=== PATIENT | male | born 1935 | race Caucasian/White ===

== ENCOUNTER 2016-05-11 12:20 | Emergency (ER) | payer MEDICARE, OTHER ==
[~2016-05-11] VITALS: Ht 180.3 cm; Wt 76.7 kg
[~2016-05-11 12:20] MED LIST: ASPI325T4 PO
[2016-05-11 13:59] VITALS: BP 123/84
--- NOTE | 2016-05-11 14:27 | PHYS DOC ---
Past Medical History Past Medical History: Anemia, CVA, Hypertension, Hypothyroid, Other Additional Past Medical Histor: LOW PLATELETS Past Surgical History: Other Additional Past Surgical Histo: Esophageal dilation. Alcohol Use: Occasionally Drug Use: None Adult General Chief Complaint Chief Complaint: NOSEBLEED [facility] HPI 81-year-old male presents secondary to a nosebleed. He states his nose started bleeding at home and he was able to pack it with a cotton ball and alleviate the bleeding. Since arrival to our emergency department he has had no further bleeding. He states he is using a humidifier at night as well as Vaseline on the inside of his nose. He states this is the second time this week he's presented to the emergency department with a nosebleed. He states the first time it stopped after using a spray of Afrin. Review of Systems Review of Systems Constitutional: Denies fever or chills [] Eyes: Denies change in visual acuity, redness, or eye pain [] HENT: Per history of present illness [] Respiratory: Denies cough or shortness of breath [] Cardiovascular: No additional information not addressed in HPI [] GI: Denies abdominal pain, nausea, vomiting, bloody stools or diarrhea [] : Denies dysuria or hematuria [] Musculoskeletal: Denies back pain or joint pain [] Integument: Denies rash or skin lesions [] Neurologic: Denies headache, focal weakness or sensory changes [] Endocrine: Denies polyuria or polydipsia [] Allergies Allergies Allergies Coded Allergies Type Severity Reaction Last Updated Verified Penicillins Allergy Intermediate Itching 03/27/13 Yes Physical Exam Physical Exam Constitutional: Well developed, well nourished, no acute distress, non-toxic appearance. [] HENT: No active bleeding from either naris there is a cotton ball packed in the anterior portion of the left naris again, no bleeding.. [] Eyes: PERRLA, EOMI, conjunctiva normal, no discharge. [] Neck: Normal range of motion, no tenderness, supple, no stridor. [] Cardiovascular:Heart rate regular rhythm, no murmur [] Lungs & Thorax: Bilateral breath sounds clear to auscultation [] Abdomen: Bowel sounds normal, soft, no tenderness, no masses, no pulsatile masses. [] Skin: Warm, dry, no erythema, no rash. [] Back: No tenderness, no CVA tenderness. [] Extremities: No tenderness, no cyanosis, no clubbing, ROM intact, no edema. [] Neurologic: Alert and oriented X 3, normal motor function, normal sensory function, no focal deficits noted. [] Psychologic: Affect normal, judgement normal, mood normal. [] Current Patient Data Vital Signs Vital Signs Date Time Temp Pulse Resp B/P Pulse Ox O2 Delivery O2 Flow Rate FiO2 05/11/16 13:59 97.2 90 18 123/84 98 Room Air 97.2 EKG EKG [] Radiology/Procedures Radiology/Procedures [] Course & Med Decision Making Course & Med Decision Making Pertinent Labs and Imaging studies reviewed. (See chart for details) [ED course: Evaluation reveals an 81-year-old anxious male that has had a couple nosebleeds at home. He is appropriately packed his left nostril. I explained to the patient that there is nothing further we would do today. Patient is stable for discharge home] Dragon Disclaimer Dragon Disclaimer This electronic medical record was generated, in whole or in part, using a voice recognition dictation system. Departure Departure Impression: Primary Impression: Epistaxis Disposition: 01 HOME, SELF-CARE Condition: STABLE Referrals: MOSHE LAMBERT MD (PCP) Patient Instructions: Nosebleed Additional Instructions: Follow with your family doctor this week for recheck. Return to the emergency department if bleeding recurs. I recommend she continue to use your humidifier. ROWENA HILL DO May 11, 2016 14:27
--- NOTE | 2016-05-12 06:17 | EKG ---
[facility] [address] [place] [id number] Test Date: 2016-05-11 Test Time: 14:17:29 Pat Name: VAIBHAV RAGSDALE Department: Room: Gender: M Bed Operator: : [id number] Requested By: ROWENA HILL Order Number: [id number] Reading MD: Christine Moreno Measurements Intervals [place] Rate: 85 P: 47 TN: 124 QRS: -21 QRSD: 96 T: 46 QT: 362 QTc: 431 Interpretive Statements SINUS RHYTHM VENTRICULAR PREMATURE COMPLEX(ES) LEFTWARD AXIS Electronically Signed On 05-14-2016 18:11:14 GENETIC COUNSELOR by Christine Moreno
== END 2016-05-11 14:32 | disposition home or self-care (01) ==
LOC: ER 12:20
DX: R04.0 Epistaxis (principal); E03.9 Hypothyroidism, unspecified; I10 Essential (primary) hypertension; Z86.73 Personal history of transient ischemic attack (TIA), and cerebral infarction without residual deficits; Z88.0 Allergy status to penicillin
CPT/HCPCS: 93005; 99283-25